=== PATIENT | male | born 1980 | race Two or more races ===

== ENCOUNTER 2018-10-08 19:28 | Emergency (ER) | payer OTHER ==
[~2018-10-08] VITALS: Ht 170.2 cm; Wt 84.8 kg
[2018-10-08] MEDS ORDERED: ONDANSETRON 2MG/ML, 2ML IVPush ONE (20:00)
[2018-10-08] MEDS ORDERED: SODIUM CHLORIDE 0.9% 1,000ML IVBOLUS ONE (20:00)
--- NOTE | 2018-10-08 20:09 | NUR ---
ASSUMED CARE OF PT. PT PRESENTS WITH RUQ ABD PAIN STARTING LAST NIGHT. DENIES N/V. STATES NO ABD SURGERIES. IV STARTED. POC DISCUSSED. PT AGREEABLE. WILL CONTINUE TO MONITOR.
[2018-10-08 20:11] LABS: BASOPHILS # (AUTO) 0.02 x10^3/uL (0-0.1); BASOPHILS % (AUTO) 0 % (0-1); EOSINOPHILS # (AUTO) 0.17 x10^3/uL (0-0.4); EOSINOPHILS % (AUTO) 1 % (1-7); LYMPHOCYTES # (AUTO) 1.97 x10^3/uL (1-3.4); LYMPHOCYTES % (AUTO) 14 % (22-44); MD NO; MEAN CORPUSCULAR HEMOGLOBIN 31.7 pg (27.5-34.5); MEAN CORPUSCULAR VOLUME 93.3 fL (81-97); MEAN PLATELET VOLUME 9.3 fL (7.4-10.4); MONOCYTES # (AUTO) 1.32 x10^3/uL (0.2-0.8); MONOCYTES % (AUTO) 9 % (2-9); NEUTROPHILS # (AUTO) 10.72 x10^3/uL (1.8-6.8); NEUTROPHILS % (AUTO) 76 % (42-75); PLATELET COUNT 246 x10^3/uL (130-400); RED BLOOD COUNT 4.54 x10^6/uL (4.38-5.82); RED CELL DISTRIBUTION WIDTH 13.7 % (9.4-14.8)
[2018-10-08 20:18] LABS: ALANINE AMINOTRANSFERASE 26 U/L (12-78); ALBUMIN 3.5 g/dL (3.4-5.0); ANION GAP 6 mmol/L (5-15); CHLORIDE 107 mmol/L (98-107); CREATININE 1.07 mg/dL (0.7-1.3)
[2018-10-08 20:21] LABS: ALKALINE PHOSPHATASE 86 U/L (45-117); BILIRUBIN,TOTAL 0.4 mg/dL (0.2-1.0); TOTAL PROTEIN 6.9 g/dL (6.4-8.2)
[2018-10-08 20:32] LABS: MICROSCOPIC INDICATED
[2018-10-08] MEDS ORDERED: OMNIPAQUE 350 MG/ML, 100ML BOTTLE ONE (20:47)
--- NOTE | 2018-10-08 20:50 | NUR ---
PT BACK FROM CT VIA [facility].
[2018-10-08 20:52] LABS: CULTURE INDICATED? NO
--- NOTE | 2018-10-08 20:55 | NUR ---
IVF STARTED PER MAR. 5 RIGHTS VERIFIED PRIOR. 3 P'S ADDRESSED.
--- NOTE | 2018-10-08 21:45 | NUR ---
PT GIVEN D/C PAPERWORK. PT VERBALIZED UNDERSTANDING. PT AMBULATED TO D/C WITH STEADY GAIT.
[2018-10-08 21:46] VITALS: BP 123/71
== END 2018-10-08 21:48 | disposition home or self-care (01) ==
LOC: ED 21:16
DX: R10.31 Right lower quadrant pain (principal); R11.0 Nausea; N28.1 Cyst of kidney, acquired; K76.89 Other specified diseases of liver
CPT/HCPCS: 36415; 74177; 80053; 81001; 83690; 85025; 93005; 99284; J7030; Q9967